=== PATIENT | female | born 1950 | race Caucasian/White ===

== ENCOUNTER 2019-09-28 11:56 | Emergency (ER) | payer MEDICARE, SELFPAY ==
[2019-09-28] VITALS (8 sets, daily range): BP systolic 118–147; BP diastolic 58–85; PULSE 88–99; RESP 16–24; TEMP 36.8–37.7; O2SAT 96–100; BMI 25.1
--- NOTE | 2019-09-28 12:55 | DI.RAD.S_ITS ---
PROCEDURE: XR CHEST 1V INDICATIONS: suspected sepsis TECHNIQUE: One view of the chest was acquired. COMPARISON: None. FINDINGS: Surgical changes and devices: Peripherally calcified right breast implant.. Lungs and pleura: Lungs are clear. No pleural effusions or pneumothorax. Mediastinum: Mediastinal contours appear normal. Heart size is normal. Bones and chest wall: No suspicious bony lesions. Overlying soft tissues appear unremarkable. IMPRESSION: No pneumonia found. Peripherally calcified right breast implant. Dictated by: Martell Merino M.D. on 09/28/2019 at 13:47 Approved by: Martell Merino M.D. on 09/28/2019 at 13:47
[2019-09-28] MEDS: SODIUM CHLORIDE 0.9% 1,000 ML 150 ML IV (13:01)
[2019-09-28 13:16] LABS: Alanine Aminotransferase 49 IU/L (<35); Albumin 3.7 g/dL (3.5-5.0); Albumin Globulin Ratio 1.1 (1.0-2.8); Alkaline Phosphatase 110 U/L (38-126); Aspartate Aminotransferase 35 IU/L (14-36); BUN Creatinine Ratio 11.6 (6-22); Bilirubin Total 0.7 mg/dL (0.2-1.3); Blood Urea Nitrogen 59 mg/dL (7-17); Calcium 7.9 mg/dL (8.4-10.2); Carbon Dioxide 17 mmol/L (22-32); Chloride 96 mmol/L (98-107); Estimated Glomerular Filt Rate 8.3 mL/min (>60); Globulin 3.4 g/dL (1.7-4.1); Glucose 130 mg/dL (80-110); HEMOLYSIS < 15 (0-50); Lactate (Lactic Acid) 2.8 mmol/L (0.7-2.1); Lipase 19 U/L (23-300); Potassium 3.9 mmol/L (3.4-5.1); Sodium 130 mmol/L (137-145); Total Protein 7.1 g/dL (6.3-8.2)
[2019-09-28 13:19] LABS: Hematocrit 34.3 % (36-46); Hemoglobin 11.5 g/dL (12.0-16.0); Mean Corpuscular HGB Conc 33.6 % (30-36); Mean Corpuscular Hemoglobin 30.6 PG (26-34); Mean Corpuscular Volume 91.1 fL (80-100); Platelet Count 139 X10^3/uL (150-400); Red Blood Cell Count 3.76 X10^6/uL (4.0-5.2); Red Cell Distribution Width 14.7 % (11.6-14.8); White Blood Cell Count 14.9 X10^3/uL (4.5-11.0)
[2019-09-28 13:22] LABS: Add Manual Diff / Slide Review YES
[2019-09-28 13:23] LABS: Bacteria Urine Many (>30); Culture Indicated Urine Specimen Cultured; RBC Urine 10-30/HPF (0-5/HPF); Squamous Epithelial Cell Urine 1-5 /HPF (0-5/HPF); WBC Urine 30-100/HPF (0-5/HPF)
[2019-09-28] MEDS: ONDANSETRON 4 MG/2 ML INJ IV (13:34)
[2019-09-28 13:44] LABS: Neutrophils Absolute Manual 14304 /uL (3000-5900); RBC Morphology Normal Morphology; Total Cells Counted 100
[2019-09-28 13:45] LABS: Procalcitonin 87.44 ng/mL (<0.5)
[2019-09-28] MEDS: CEFTRIAXONE 1 GM/50 ML FROZ.PIGGY IV (13:48)
--- NOTE | 2019-09-28 14:46 | DI.US.S_ITS ---
PROCEDURE: US RENAL COMPLETE INDICATIONS: acute kidney injury, infection, decreased urine output TECHNIQUE: Real-time scanning was performed of the kidneys and bladder, with image documentation. COMPARISON: None. FINDINGS: Kidneys: Kidneys are normal in size. Right kidney measures 11.8 cm long; left kidney measures 12.9 cm long. Right renal cortical thickness is 2.2 cm; left renal cortical thickness is 2.1 cm. Renal cortical echotexture is normal. No hydronephrosis or shadowing nephrolithiasis. No suspicious solid mass lesions. Bladder: The urinary bladder is decompressed and subsequently not adequately evaluated. No significant urine is appreciated within the bladder. Miscellaneous: No free pelvic fluid. IMPRESSION: No hydronephrosis or shadowing nephrolithiasis. Dictated by: Nikolas Shepherd M.D. on 09/28/2019 at 14:27 Approved by: Nikolas Shepherd M.D. on 09/28/2019 at 14:28
--- NOTE | 2019-09-28 14:55 | ED_ITS ---
HPI - Nausea/Vomiting/Diarrhea <ROM Parks - Last Filed: 09/28/19 21:14> General Chief complaint: Nausea/Vomiting/Diarrhea Stated complaint: weakness,not holding down liquids Time Seen by Provider: 09/28/19 12:55 Source: patient and family Mode of arrival: Family Vehicle Limitations: language barrier History of Present Illness HPI Narrative: This is a 69-year-old female, nonsmoker, who presents to ED with chief complain of fatigue, nausea and vomiting since 2 days ago. Patient reports she chills 3 days ago prior to this. Patient denies fever, chills at this time. Patient reports she is able to void but has been voiding small amounts. Patient reports bilateral and generalized abdominal discomfort but denies flank pain. Patient denies blood in her urine. She reports she has difficult time just keeping few sips of liquids down at this time. Patient has history of acute kidney injury and and infection about 2 years ago and had similar symptoms but today she feels worse. Then, she was hospitalized for 3 days and received IV hydration and medication. She and her are from [place] and currently visiting her son and [id number] [place] [facility]. She had [facility] routine follow-up with urologist in August and was told she has an UTI which she did not have any symptoms and was prescribed cefuroxime 500 mg b.i.d. for 5 day course which she had completed. She does have bladder prolapse and at times she does have infection from this. She was Toviaz but this has been stopped working according to the patient. Related Data Home Medications Medication Instructions Recorded Confirmed duloxetine 60 mg PO BID 09/28/19 09/28/19 fesoterodine [Toviaz] 4 mg PO DAILY 09/28/19 09/28/19 levothyroxine 150 mcg PO DAILY 09/28/19 09/28/19 mirabegron [Myrbetriq] 25 mg PO DAILY 09/28/19 09/28/19 rosuvastatin 5 mg PO DAILY 09/28/19 09/28/19 Allergies Allergy/AdvReac Type Severity Reaction Status Date / Time No Known Drug Allergies Allergy Verified 09/28/19 13:48 Review of Systems <ROM Parks Last Filed: 09/28/19 21:14> Review of Systems Narrative: General: See HPI HEENT: Denies sinus pain, ear pain, sore throat, difficulty swallowing, dizziness. Respiratory: Denies dyspnea, cough, wheezing, hemoptysis, sputum. Cardiovascular: Denies chest pain, palpitations, orthopnea, edema. Gastrointestinal: Denies nausea, vomiting, (+) lower bilateral abdominal pain, diarrhea, constipation, melena. : Denies dysuria, frequency, incontinence, hematuria, urinary retention. Musculoskeletal: Denies weakness, joint pain or bony pain. Skin: Denies rash, skin lesions, or other. Neurologic: Denies weakness, headache, numbness, change in speech, confusion, seizures, incoordination. Psychiatric: No concerning psychosocial issues. 12-point review of systems is negative except for those stated above. Patient History <ROM Parks - Last Filed: 09/28/19 21:14> Medical History Acute kidney injury (Acute) Bladder prolapse (Acute) Hypothyroidism (Acute) Melanoma (Acute) Surgical History H/O thyroidectomy (Acute) H/O: hysterectomy (Acute) S/P laminectomy (Acute) S/P tonsillectomy (Acute) Social History Smoking Status: Never smoker Smoking Status: Never smoker alcohol intake frequency: a few times a week Substance Use Type: does not use Exam <ROM Parks - Last Filed: 09/28/19 21:14> Narrative Exam Narrative: GEN: Alert, oriented x 3, tired and in moderate distress. Head: Normal cephalic, atraumatic. No scalp or temporal tenderness, palpable mass or rash. EYES: Pupils are equal, round, and reactive to light and accommodation. Extraocular muscles are intact bilaterally. There is no subconjunctival hemorrhage, exudate and sclera non-icteric. ENT: Bilateral auditory canals and tympanic membranes clear. Hearing grossly intact. Nose without bleeding, purulent discharge or deviation. Facial sinuses nontender to palpate. Mucous membrane very dry, no mucosal lesion. Throat without erythema, tonsillar hypertrophy or exudate. Uvula in midline, airway patent. Neck: Trachea in midline. No JVD, non-tender without lymphadenopathy. No masses or thyroid megaly. Supple, non-tender and no meningeal signs. CARDIAC: Normal regular rate and rhythm without murmurs, gallops, or rubs. No chest wall tenderness. No peripheral edema, cyanosis or pallor. Capillary refill is less than 2 seconds. RESPIRATORY: Lungs are clear to auscultate bilaterally. No cough, wheezes, rales, or rhonchi. No stridor, respiratory distress, increase work of breathing, or accessary muscle used. ABD: Abdomen soft, tender to palpate in generalize lower abdomen, non-distended. No guarding or rebound tenderness to palpate. Bowel sounds are normal in all 4 quadrants. There is no palpable masses or organomegaly. EXT: Full painless ROM of all extremities with no loss of sensation, strength, effusion or edema. SKIN: Warm, dry, normal color for patient. No erythema, lesions or rash over visible areas. BACK: Nontender without deformity or crepitance. No flank tenderness. NEUROLOGICAL: Alert and oriented to place, time and person. Sensation and motor function intact bilaterally. No facial droops, dysphasia. PSYCHIATRIC: Good judgement and reason, without hallucinations, abnormal affect or abnormal behaviors during the examination. Patient is not suicidal. Initial Vital Signs Initial Vital Signs: Vital Signs Temperature 99.9 F H 09/28/19 12:24 Pulse Rate 99 H 09/28/19 12:24 Respiratory Rate 24 09/28/19 12:24 Blood Pressure 141/63 H 09/28/19 12:24 Pulse Oximetry 09/28/19 12:24 <Belen Gonzalez, DO - Last Filed: 09/29/19 03:19> Initial Vital Signs Initial Vital Signs: Vital Signs Temperature 99.9 F H 09/28/19 12:24 Pulse Rate 99 H 09/28/19 12:24 Respiratory Rate 24 09/28/19 12:24 Blood Pressure 141/63 H 09/28/19 12:24 Pulse Oximetry 09/28/19 12:24 <Tegan Macedo DO - Last Filed: 10/01/19 08:12> Initial Vital Signs Initial Vital Signs: Vital Signs Temperature 99.9 F H 09/28/19 12:24 Pulse Rate 99 H 09/28/19 12:24 Respiratory Rate 24 09/28/19 12:24 Blood Pressure 141/63 H 09/28/19 12:24 Pulse Oximetry 99 09/28/19 12:24 Scores <ROM Parks - Last Filed: 09/28/19 21:14> GCS Primghar coma scale eye opening: Spontaneous Lauren coma scale verbal response: Orientated [place] coma scale motor response: Obey commands Primghar coma scale total score: 15 Course <ROM Parks - Last Filed: 09/28/19 21:14> Course Course Narrative: Spoke with [facility] chief lending officer Dr. Spence and consulted. Dr. Mathew, Hospitalist kindly accepted the patient's care for Sepsis UTI and [place]. Spoke with Dr. Eldridge, Hopitalist, but due to complicated the patient's condition and may need dialysis if the patient's condition not improving Decision to Admit Date: 09/28/19 Decision to Admit time: 14:15 Orders Ordered: Discontinued Medications Hydromorphone HCl (Dilaudid) 0.5 mg IV NOW ONE Stop: 09/28/19 15:51 Last Admin: 09/28/19 16:01 Dose: 0.5 mg Documented by: FELICE Hydromorphone HCl (Dilaudid) 0.5 mg IV NOW ONE Stop: 09/28/19 19:30 Last Admin: 09/28/19 19:40 Dose: 0.5 mg Documented by: KEN Sodium Chloride (Normal Saline 0.9%) 1,000 mls @ 999 mls/hr IV CONT ODALYS Last Infusion: 09/28/19 17:39 Dose: 0 mls/hr Documented by: Admin: 09/28/19 13:01 Dose: 150 mls/hr Documented by: FELICE Ceftriaxone Sodium/Dextrose (Rocephin) 1 gm in 50 mls @ 100 mls/hr IV NOW ONE Stop: 09/28/19 14:05 Last Infusion: 09/28/19 15:03 Dose: 0 mls/hr Documented by: Admin: 09/28/19 13:48 Dose: 100 mls/hr Documented by: FELICE Sodium Chloride (Normal Saline 0.9%) 1,000 mls @ 1,000 mls/hr IV BOLUS ONE Stop: 09/28/19 15:01 Last Infusion: 09/28/19 16:23 Dose: 0 mls/hr Documented by: Admin: 09/28/19 15:03 Dose: 1,000 mls/hr Documented by: FELICE Sodium Chloride (Normal Saline 0.9%) 1,000 mls @ 125 mls/hr IV CONT ODALYS Last Admin: 09/28/19 17:40 Dose: 125 mls/hr Documented by: AL Morphine Sulfate (Morphine) 2 mg IV NOW ONE Stop: 09/28/19 14:52 Last Admin: 09/28/19 15:23 Dose: 2 mg Documented by: FELICE Ondansetron HCl (Zofran) 4 mg IV NOW ONE Stop: 09/28/19 13:25 Last Admin: 09/28/19 13:34 Dose: 4 mg Documented by: FELICE Reevaluation(s) Reevaluation #1: The patient reports feeling improved at this time. Patient waiting for [place] transfer team for transfer to [facility] Time: 17:00 Vital Signs Vital signs: Vital Signs - 8 hr 09/28/19 14:00 09/28/19 15:00 09/28/19 15:55 Temperature 98.3 F Pulse Rate 92 H 92 H 93 H Respiratory Rate 18 20 19 Blood Pressure [right arm] 118/58 L 118/60 125/73 Pulse Oximetry 100 98 100 09/28/19 17:36 09/28/19 18:00 09/28/19 18:45 Temperature Pulse Rate 90 88 92 H Respiratory Rate 18 16 18 Blood Pressure [right arm] 126/85 135/63 142/73 H Pulse Oximetry 100 96 99 09/28/19 19:00 Temperature Pulse Rate 91 H Respiratory Rate 18 Blood Pressure [right arm] 147/74 H Pulse Oximetry 99 <Belen Gonzalez DO - Last Filed: 09/29/19 03:19> Orders Ordered: Discontinued Medications Hydromorphone HCl (Dilaudid) 0.5 mg IV NOW ONE Stop: 09/28/19 15:51 Last Admin: 09/28/19 16:01 Dose: 0.5 mg Documented by: FELICE Hydromorphone HCl (Dilaudid) 0.5 mg IV NOW ONE Stop: 09/28/19 19:30 Last Admin: 09/28/19 19:40 Dose: 0.5 mg Documented by: KEN Sodium Chloride (Normal Saline 0.9%) 1,000 mls @ 999 mls/hr IV CONT ODALYS Last Infusion: 09/28/19 17:39 Dose: 0 mls/hr Documented by: Admin: 09/28/19 13:01 Dose: 150 mls/hr Documented by: FELICE Ceftriaxone Sodium/Dextrose (Rocephin) 1 gm in 50 mls @ 100 mls/hr IV NOW ONE Stop: 09/28/19 14:05 Last Infusion: 09/28/19 15:03 Dose: 0 mls/hr Documented by: Admin: 09/28/19 13:48 Dose: 100 mls/hr Documented by: FELICE Sodium Chloride (Normal Saline 0.9%) 1,000 mls @ 1,000 mls/hr IV BOLUS ONE Stop: 09/28/19 15:01 Last Infusion: 09/28/19 16:23 Dose: 0 mls/hr Documented by: Admin: 09/28/19 15:03 Dose: 1,000 mls/hr Documented by: FELICE Sodium Chloride (Normal Saline 0.9%) 1,000 mls @ 125 mls/hr IV CONT ODALYS Last Admin: 09/28/19 17:40 Dose: 125 mls/hr Documented by: AL Morphine Sulfate (Morphine) 2 mg IV NOW ONE Stop: 09/28/19 14:52 Last Admin: 09/28/19 15:23 Dose: 2 mg Documented by: FELICE Ondansetron HCl (Zofran) 4 mg IV NOW ONE Stop: 09/28/19 13:25 Last Admin: 09/28/19 13:34 Dose: 4 mg Documented by: FELICE Vital Signs Vital signs: Vital Signs - 8 hr 09/28/19 14:00 09/28/19 15:00 09/28/19 15:55 Temperature 98.3 F Pulse Rate 92 H 92 H 93 H Respiratory Rate 18 20 19 Blood Pressure [right arm] 118/58 L 118/60 125/73 Pulse Oximetry 100 98 100 09/28/19 17:36 09/28/19 18:00 09/28/19 18:45 Temperature Pulse Rate 90 88 92 H Respiratory Rate 18 16 18 Blood Pressure [right arm] 126/85 135/63 142/73 H Pulse Oximetry 100 96 99 09/28/19 19:00 Temperature Pulse Rate 91 H Respiratory Rate 18 Blood Pressure [right arm] 147/74 H Pulse Oximetry 99 <Tegan Macedo DO - Last Filed: 10/01/19 08:12> Orders Ordered: Discontinued Medications Hydromorphone HCl (Dilaudid) 0.5 mg IV NOW ONE Stop: 09/28/19 15:51 Last Admin: 09/28/19 16:01 Dose: 0.5 mg Documented by: FELICE Hydromorphone HCl (Dilaudid) 0.5 mg IV NOW ONE Stop: 09/28/19 19:30 Last Admin: 09/28/19 19:40 Dose: 0.5 mg Documented by: KEN Sodium Chloride (Normal Saline 0.9%) 1,000 mls @ 999 mls/hr IV CONT [facility] Last Infusion: 09/28/19 17:39 Dose: 0 mls/hr Documented by: Admin: 09/28/19 13:01 Dose: 150 mls/hr Documented by: FELICE Ceftriaxone Sodium/Dextrose (Rocephin) 1 gm in 50 mls @ 100 mls/hr IV NOW ONE Stop: 09/28/19 14:05 Last Infusion: 09/28/19 15:03 Dose: 0 mls/hr Documented by: Admin: 09/28/19 13:48 Dose: 100 mls/hr Documented by: [place] Sodium Chloride (Normal Saline 0.9%) 1,000 mls @ 1,000 mls/hr IV BOLUS ONE Stop: 09/28/19 15:01 Last Infusion: 09/28/19 16:23 Dose: 0 mls/hr Documented by: Admin: 09/28/19 15:03 Dose: 1,000 mls/hr Documented by: [place] Sodium Chloride (Normal Saline 0.9%) 1,000 mls @ 125 mls/hr IV CONT ODALYS Last Admin: 09/28/19 17:40 Dose: 125 mls/hr Documented by: AL Morphine Sulfate (Morphine) 2 mg IV NOW ONE Stop: 09/28/19 14:52 Last Admin: 09/28/19 15:23 Dose: 2 mg Documented by: FELICE Ondansetron HCl (Zofran) 4 mg IV NOW ONE Stop: 09/28/19 13:25 Last Admin: 09/28/19 13:34 Dose: 4 mg Documented by: FELICE Vital Signs Vital signs: Vital Signs - 8 hr 09/28/19 14:00 09/28/19 15:00 09/28/19 15:55 Temperature 98.3 F Pulse Rate 92 H 92 H 93 H Respiratory Rate 18 20 19 Blood Pressure [right arm] 118/58 L 118/60 125/73 Pulse Oximetry 100 98 100 09/28/19 17:36 09/28/19 18:00 09/28/19 18:45 Temperature Pulse Rate 90 88 92 H Respiratory Rate 18 16 18 Blood Pressure [right arm] 126/85 135/63 142/73 H Pulse Oximetry 100 96 99 09/28/19 19:00 Temperature Pulse Rate 91 H Respiratory Rate 18 Blood Pressure [right arm] 147/74 H Pulse Oximetry 99 MDM - Nausea/Vomiting/Diarrhea <ROM Parks - Last Filed: 09/28/19 21:14> Differential Diagnosis Differential diagnosis: Likely dehydration and other (Acute kidney injury, UTI, sepsis) Medical Records Attestation: I reviewed the patient's medical records. Lab Data Attestation: I reviewed the patient's lab results. Result diagrams: 09/28/19 12:50 09/28/19 15:13 Labs: Lab Results 09/28/19 09/28/19 09/28/19 Range/Units 12:30 12:50 12:50 WBC 14.9 H (4.5-11.0) X10^3/uL RBC 3.76 L (4.0-5.2) X10^6/uL Hgb 11.5 L (12.0-16.0) g/dL Hct 34.3 L (36-46) % MCV 91.1 (80-100) fL MCH 30.6 (26-34) PG MCHC 33.6 (30-36) % RDW 14.7 (11.6-14.8) % Plt Count 139 L (150-400) X10^3/uL Neut % (Auto) Not Reportable Lymph % (Auto) Not Reportable [place] % (Auto) Not Reportable Eos % (Auto) Not Reportable Baso % (Auto) Not Reportable Lymph # (Auto) Not Reportable [place] # (Auto) Not Reportable Baso # (Auto) Not Reportable Total Counted 100 Seg Neutrophils % 83.0 H (38-70) % Band Neutrophils % 13.0 H (3-7) % Lymphocytes % (Manual) 3.0 L (25-45) % Monocytes % (Manual) 1.0 L (2-11) % Neutrophils # (Manual) 36785 H (5968-7151) /uL RBC Morphology Normal morphology Sodium 130 L (137-145) mmol/L Potassium 3.9 (3.4-5.1) mmol/L Chloride 96 L (98-107) mmol/L Carbon Dioxide 17 L (22-32) mmol/L BUN 59 H (7-17) mg/dL Creatinine 5.10 H (0.52-1.04) mg/dL Estimated GFR 8.3 L (>60) mL/min BUN/Creatinine Ratio 11.6 (6-22) Glucose 130 H (80-110) mg/dL Lactate (0.7-2.1) mmol/L Calcium 7.9 L (8.4-10.2) mg/dL Total Bilirubin 0.7 (0.2-1.3) mg/dL AST 35 (14-36) IU/L ALT 49 H (<35) IU/L Alkaline Phosphatase 110 (38-126) U/L Total Protein 7.1 (6.3-8.2) g/dL Albumin 3.7 (3.5-5.0) g/dL Globulin 3.4 (1.7-4.1) g/dL Albumin/Globulin Ratio 1.1 (1.0-2.8) Lipase 19 L (23-300) U/L Procalcitonin (<0.5) ng/mL Urine RBC 10-30/hpf H (0-5/HPF) Urine WBC 30-100/hpf H (0-5/HPF) Ur Squamous Epith Cells 1-5 /hpf (0-5/HPF) Urine Bacteria Many (>30) H (None) Ur Culture Indicated? Specimen cultured A. baumannii (PCR) (Not Detect) Sally albicans (PCR) (Not Detect) C. glabrata (PCR) (Not Detect) C. krusei (PCR) (Not Detect) C. parapsilosis (PCR) (Not Detect) C. tropicalis (PCR) (Not Detect) Enterobacteriac sp PCR (Not Detect) E. cloacae complex PCR (Not Detect) Enterococcus sp PCR (Not Detect) E. coli (PCR) (Not Detect) H. influenzae (PCR) (Not Detect) Influenza A (RT-PCR) (NEGATIVE) Influenza B (RT-PCR) (NEGATIVE) Klebsiella oxytoca PCR (Not Detect) Klebsiella pneumoniae (Not Detect) List. monocytogenes PCR (Not Detect) N. meningitidis (PCR) (Not Detect) Proteus species (PCR) (Not Detect) Serratia marcescens PCR (Not Detect) Staphylococcus sp PCR (Not Detect) Staph aureus (PCR) (Not Detect) mecA-Methicil Res Gene Streptococcus sp PCR (Not Detect) Group A Strep (PCR) (Not Detect) Strep agalactiae (PCR) (Not Detect) Strep pneumoniae (PCR) (Not Detect) P. aeruginosa (PCR) (Not Detect) Noel/B-Vanco Res Genes KPC-Carbap Res Gene PCR (Not Detect) 09/28/19 09/28/19 09/28/19 Range/Units 12:50 12:50 12:50 WBC (4.5-11.0) X10^3/uL RBC (4.0-5.2) X10^6/uL Hgb (12.0-16.0) g/dL Hct (36-46) % MCV (80-100) fL MCH (26-34) PG MCHC (30-36) % RDW (11.6-14.8) % Plt Count (150-400) X10^3/uL Neut % (Auto) Lymph % (Auto) [place] % (Auto) Eos % (Auto) Baso % (Auto) Lymph # (Auto) [place] # (Auto) Baso # (Auto) Total Counted Seg Neutrophils % (38-70) % Band Neutrophils % (3-7) % Lymphocytes % (Manual) (25-45) % Monocytes % (Manual) (2-11) % Neutrophils # (Manual) (3708-2441) /uL RBC Morphology Sodium (137-145) mmol/L Potassium (3.4-5.1) mmol/L Chloride (98-107) mmol/L Carbon Dioxide (22-32) mmol/L BUN (7-17) mg/dL Creatinine (0.52-1.04) mg/dL Estimated GFR (>60) mL/min BUN/Creatinine Ratio (6-22) Glucose (80-110) mg/dL Lactate 2.8 H (0.7-2.1) mmol/L Calcium (8.4-10.2) mg/dL Total Bilirubin (0.2-1.3) mg/dL AST (14-36) IU/L ALT (<35) IU/L Alkaline Phosphatase (38-126) U/L Total Protein (6.3-8.2) g/dL Albumin (3.5-5.0) g/dL Globulin (1.7-4.1) g/dL Albumin/Globulin Ratio (1.0-2.8) Lipase (23-300) U/L Procalcitonin 87.44 H (<0.5) ng/mL Urine RBC (0-5/HPF) Urine WBC (0-5/HPF) Ur Squamous Epith Cells (0-5/HPF) Urine Bacteria (None) Ur Culture Indicated? A. baumannii (PCR) Not detected (Not Detect) Sally albicans (PCR) Not detected (Not Detect) C. glabrata (PCR) Not detected (Not Detect) C. krusei (PCR) Not detected (Not Detect) C. parapsilosis (PCR) Not detected (Not Detect) C. tropicalis (PCR) Not detected (Not Detect) Enterobacteriac sp PCR Detected H (Not Detect) E. cloacae complex PCR Not detected (Not Detect) Enterococcus sp PCR Not detected (Not Detect) E. coli (PCR) Detected H (Not Detect) H. influenzae (PCR) Not detected (Not Detect) Influenza A (RT-PCR) (NEGATIVE) Influenza B (RT-PCR) (NEGATIVE) Klebsiella oxytoca PCR Not detected (Not Detect) Klebsiella pneumoniae Not detected (Not Detect) List. monocytogenes PCR Not detected (Not Detect) N. meningitidis (PCR) Not detected (Not Detect) Proteus species (PCR) Not detected (Not Detect) Serratia marcescens PCR Not detected (Not Detect) Staphylococcus sp PCR Not detected (Not Detect) Staph aureus (PCR) Not detected (Not Detect) mecA-Methicil Res Gene Not Reportable Streptococcus sp PCR Not detected (Not Detect) Group A Strep (PCR) Not detected (Not Detect) Strep agalactiae (PCR) Not detected (Not Detect) Strep pneumoniae (PCR) Not detected (Not Detect) P. aeruginosa (PCR) Not detected (Not Detect) Noel/B-Vanco Res Genes Not Reportable KPC-Carbap Res Gene PCR Not detected (Not Detect) 09/28/19 09/28/19 09/28/19 Range/Units 15:13 15:13 17:58 WBC (4.5-11.0) X10^3/uL RBC (4.0-5.2) X10^6/uL Hgb (12.0-16.0) g/dL Hct (36-46) % MCV (80-100) fL MCH (26-34) PG MCHC (30-36) % RDW (11.6-14.8) % Plt Count (150-400) X10^3/uL Neut % (Auto) Lymph % (Auto) [place] % (Auto) Eos % (Auto) Baso % (Auto) Lymph # (Auto) [place] # (Auto) Baso # (Auto) Total Counted Seg Neutrophils % (38-70) % Band Neutrophils % (3-7) % Lymphocytes % (Manual) (25-45) % Monocytes % (Manual) (2-11) % Neutrophils # (Manual) (9318-5543) /uL RBC Morphology Sodium 129 L (137-145) mmol/L Potassium 4.0 (3.4-5.1) mmol/L Chloride 97 L (98-107) mmol/L Carbon Dioxide 21 L (22-32) mmol/L BUN 62 H (7-17) mg/dL Creatinine 4.70 H (0.52-1.04) mg/dL Estimated GFR 9.2 L (>60) mL/min BUN/Creatinine Ratio 13.2 (6-22) Glucose 117 H (80-110) mg/dL Lactate 1.3 (0.7-2.1) mmol/L Calcium 7.4 L (8.4-10.2) mg/dL Total Bilirubin (0.2-1.3) mg/dL AST (14-36) IU/L ALT (<35) IU/L Alkaline Phosphatase (38-126) U/L Total Protein (6.3-8.2) g/dL Albumin (3.5-5.0) g/dL Globulin (1.7-4.1) g/dL Albumin/Globulin Ratio (1.0-2.8) Lipase (23-300) U/L Procalcitonin (<0.5) ng/mL Urine RBC (0-5/HPF) Urine WBC (0-5/HPF) Ur Squamous Epith Cells (0-5/HPF) Urine Bacteria (None) Ur Culture Indicated? A. baumannii (PCR) (Not Detect) Sally albicans (PCR) (Not Detect) C. glabrata (PCR) (Not Detect) C. krusei (PCR) (Not Detect) C. parapsilosis (PCR) (Not Detect) C. tropicalis (PCR) (Not Detect) Enterobacteriac sp PCR (Not Detect) E. cloacae complex PCR (Not Detect) Enterococcus sp PCR (Not Detect) E. coli (PCR) (Not Detect) H. influenzae (PCR) (Not Detect) Influenza A (RT-PCR) Flu a negative (NEGATIVE) Influenza B (RT-PCR) Flu b negative (NEGATIVE) Klebsiella oxytoca PCR (Not Detect) Klebsiella pneumoniae (Not Detect) List. monocytogenes PCR (Not Detect) N. meningitidis (PCR) (Not Detect) Proteus species (PCR) (Not Detect) Serratia marcescens PCR (Not Detect) Staphylococcus sp PCR (Not Detect) Staph aureus (PCR) (Not Detect) mecA-Methicil Res Gene Streptococcus sp PCR (Not Detect) Group A Strep (PCR) (Not Detect) Strep agalactiae (PCR) (Not Detect) Strep pneumoniae (PCR) (Not Detect) P. aeruginosa (PCR) (Not Detect) Noel/B-Vanco Res Genes KPC-Carbap Res Gene PCR (Not Detect) Urine Dip Bedside Urine Glucose Negative Bedside Urine Bilirubin - Negative Bedside Urine Ketone +/- 5 Urine Specific [place] 1.020 Bedside Urine Occult Blood ++ Bedside Urine pH 6.0 Bedside Urine Protein +++ 300 Bedside Urine Urobilinogen - Negative Bedside Urine Nitrite - Negative Bedside Urine Leukocytes ++ 125 Esterase Imaging Data US-Abdomen: Radiologist's Impression: [address] [address] Ultrasound Report Signed Patient: Verna Quiles#: [id number] : 1950Acct:[id number] Age/Sex: 69 / FDate of Service: 09/28/19 Loc: ED Accession Number: [id number] Procedure: US renal complete Ordering Provider: Alexys Rios PROCEDURE: US RENAL COMPLETE INDICATIONS: acute kidney injury, infection, decreased urine output TECHNIQUE: Real-time scanning was performed of the kidneys and bladder, with image documentation. COMPARISON: None. FINDINGS: Kidneys: Kidneys are normal in size. Right kidney measures 11.8 cm long; left kidney measures 12.9 cm long. Right renal cortical thickness is 2.2 cm; left renal cortical thickness is 2.1 cm. Renal cortical echotexture is normal. No hydronephrosis or shadowing nephrolithiasis. No suspicious solid mass lesions. Bladder: The urinary bladder is decompressed and subsequently not adequately evaluated. No significant urine is appreciated within the bladder. Miscellaneous: No free pelvic fluid. IMPRESSION: No hydronephrosis or shadowing nephrolithiasis. Dictated by: Nikolas Shepherd M.D. on 09/28/2019 at 14:27 Approved by: Nikolas Shepherd M.D. on 09/28/2019 at 14:28 ECG Data Attestation: I personally reviewed and interpreted this ECG as follows: Prior ECG tracings: not available for review Interpretation: Sinus tachycardia rate at 103. Pr in 140, normal QRS duration, QT/QTc 322/[address] elevation or depression MDM Narrative Medical decision making narrative: This is a 69-year-old female who presents to ED with not feeling well, fatigue, unable to tolerate fluids for 2 days. Patient recently treated with UTI which was prescribed by her urologist in [place] with cefuroxime 500 mg b.i.d. dose for 5 days secondary to history of bladder prolapse and occasional infection. Patient reports had chills prior her symptoms developed 2 days ago. Patient denies urinary frequency, urgency, hematuria and states able to urinate but just very small amount. Urine appears to be having an infection with WBC, RBC, Leuks 125 w/o nitrite. Postive +++300 of urine protien. Positive leukocytosis of 14.9 with shift left of Bands of 13. Lactate was 2.8 and procalcitonin of 87.44. Chemistry shows BUN of 59, Cr 5.1 with GFR of 8.3 and normal BUN/Cr ratio of 11.6 , Na 130 and CO2 of 17. Normal K 3.9. Urine is pending for culture and 2 blood cultures were obtained prior starting IV antibiotic medication Rocephin 1 g. Patient was hydrated with 2 L of normal saline. Renal Ultrasound was obtained indicating no hydronephrosis or nephrolithiasis. No mass lesions were noted. Her symptoms may due to severe dehydration but with her significantly decreased kidney function I am concerned for possible dialysis therapy may needed and she may have intra-renal disease. Patient was not accepted by [facility] hospitalist due to patient's complicated condition and possible dialysis. [facility] chief lending officer was consulted and she was kindly accepted by hospitalist. Repeat BMP and lactate was ordered after 2 L of IV fluid. Lactate improved to 1.3. Kidney function test-Cr 4.7, BUN 65, GFR 9.2 and Ca 7.4, Na 129, CO 21. Patient was medicated with morphine 2 mg IV then Dilaudid 0.5 mg IV for flank pain which improved with her discomfort. Patient has been afebrile in ED stable vital signs. Urine per bladder scanner: 95ml at 1925 after 2 liter of NS and gentle IV hydration at 125ml/hr and had not voided after intial small amt of void when she got to ER. <Belen Gonzalez, DO - Last Filed: 09/29/19 03:19> Lab Data Labs: Lab Results 09/28/19 09/28/19 09/28/19 Range/Units 12:30 12:50 12:50 WBC 14.9 H (4.5-11.0) X10^3/uL RBC 3.76 L (4.0-5.2) X10^6/uL Hgb 11.5 L (12.0-16.0) g/dL Hct 34.3 L (36-46) % MCV 91.1 (80-100) fL MCH 30.6 (26-34) PG MCHC 33.6 (30-36) % RDW 14.7 (11.6-14.8) % Plt Count 139 L (150-400) X10^3/uL Neut % (Auto) Not Reportable Lymph % (Auto) Not Reportable [place] % (Auto) Not Reportable Eos % (Auto) Not Reportable Baso % (Auto) Not Reportable Lymph # (Auto) Not Reportable [place] # (Auto) Not Reportable Baso # (Auto) Not Reportable Total Counted 100 Seg Neutrophils % 83.0 H (38-70) % Band Neutrophils % 13.0 H (3-7) % Lymphocytes % (Manual) 3.0 L (25-45) % Monocytes % (Manual) 1.0 L (2-11) % Neutrophils # (Manual) 79278 H (7709-2882) /uL RBC Morphology Normal morphology Sodium 130 L (137-145) mmol/L Potassium 3.9 (3.4-5.1) mmol/L Chloride 96 L (98-107) mmol/L Carbon Dioxide 17 L (22-32) mmol/L BUN 59 H (7-17) mg/dL Creatinine 5.10 H (0.52-1.04) mg/dL Estimated GFR 8.3 L (>60) mL/min BUN/Creatinine Ratio 11.6 (6-22) Glucose 130 H (80-110) mg/dL Lactate (0.7-2.1) mmol/L Calcium 7.9 L (8.4-10.2) mg/dL Total Bilirubin 0.7 (0.2-1.3) mg/dL AST 35 (14-36) IU/L ALT 49 H (<35) IU/L Alkaline Phosphatase 110 (38-126) U/L Total Protein 7.1 (6.3-8.2) g/dL Albumin 3.7 (3.5-5.0) g/dL Globulin 3.4 (1.7-4.1) g/dL Albumin/Globulin Ratio 1.1 (1.0-2.8) Lipase 19 L (23-300) U/L Procalcitonin (<0.5) ng/mL Urine RBC 10-30/hpf H (0-5/HPF) Urine WBC 30-100/hpf H (0-5/HPF) Ur Squamous Epith Cells 1-5 /hpf (0-5/HPF) Urine Bacteria Many (>30) H (None) Ur Culture Indicated? Specimen cultured A. baumannii (PCR) (Not Detect) Sally albicans (PCR) (Not Detect) C. glabrata (PCR) (Not Detect) C. krusei (PCR) (Not Detect) C. parapsilosis (PCR) (Not Detect) C. tropicalis (PCR) (Not Detect) Enterobacteriac sp PCR (Not Detect) E. cloacae complex PCR (Not Detect) Enterococcus sp PCR (Not Detect) E. coli (PCR) (Not Detect) H. influenzae (PCR) (Not Detect) Influenza A (RT-PCR) (NEGATIVE) Influenza B (RT-PCR) (NEGATIVE) Klebsiella oxytoca PCR (Not Detect) Klebsiella pneumoniae (Not Detect) List. monocytogenes PCR (Not Detect) N. meningitidis (PCR) (Not Detect) Proteus species (PCR) (Not Detect) Serratia marcescens PCR (Not Detect) Staphylococcus sp PCR (Not Detect) Staph aureus (PCR) (Not Detect) mecA-Methicil Res Gene Streptococcus sp PCR (Not Detect) Group A Strep (PCR) (Not Detect) Strep agalactiae (PCR) (Not Detect) Strep pneumoniae (PCR) (Not Detect) P. aeruginosa (PCR) (Not Detect) Noel/B-Vanco Res Genes KPC-Carbap Res Gene PCR (Not Detect) 09/28/19 09/28/19 09/28/19 Range/Units 12:50 12:50 12:50 WBC (4.5-11.0) X10^3/uL RBC (4.0-5.2) X10^6/uL Hgb (12.0-16.0) g/dL Hct (36-46) % MCV (80-100) fL MCH (26-34) PG MCHC (30-36) % RDW (11.6-14.8) % Plt Count (150-400) X10^3/uL Neut % (Auto) Lymph % (Auto) [place] % (Auto) Eos % (Auto) Baso % (Auto) Lymph # (Auto) [place] # (Auto) Baso # (Auto) Total Counted Seg Neutrophils % (38-70) % Band Neutrophils % (3-7) % Lymphocytes % (Manual) (25-45) % Monocytes % (Manual) (2-11) % Neutrophils # (Manual) (9639-6739) /uL RBC Morphology Sodium (137-145) mmol/L Potassium (3.4-5.1) mmol/L Chloride (98-107) mmol/L Carbon Dioxide (22-32) mmol/L BUN (7-17) mg/dL Creatinine (0.52-1.04) mg/dL Estimated GFR (>60) mL/min BUN/Creatinine Ratio (6-22) Glucose (80-110) mg/dL Lactate 2.8 H (0.7-2.1) mmol/L Calcium (8.4-10.2) mg/dL Total Bilirubin (0.2-1.3) mg/dL AST (14-36) IU/L ALT (<35) IU/L Alkaline Phosphatase (38-126) U/L Total Protein (6.3-8.2) g/dL Albumin (3.5-5.0) g/dL Globulin (1.7-4.1) g/dL Albumin/Globulin Ratio (1.0-2.8) Lipase (23-300) U/L Procalcitonin 87.44 H (<0.5) ng/mL Urine RBC (0-5/HPF) Urine WBC (0-5/HPF) Ur Squamous Epith Cells (0-5/HPF) Urine Bacteria (None) Ur Culture Indicated? A. baumannii (PCR) Not detected (Not Detect) Sally albicans (PCR) Not detected (Not Detect) C. glabrata (PCR) Not detected (Not Detect) C. krusei (PCR) Not detected (Not Detect) C. parapsilosis (PCR) Not detected (Not Detect) C. tropicalis (PCR) Not detected (Not Detect) Enterobacteriac sp PCR Detected H (Not Detect) E. cloacae complex PCR Not detected (Not Detect) Enterococcus sp PCR Not detected (Not Detect) E. coli (PCR) Detected H (Not Detect) H. influenzae (PCR) Not detected (Not Detect) Influenza A (RT-PCR) (NEGATIVE) Influenza B (RT-PCR) (NEGATIVE) Klebsiella oxytoca PCR Not detected (Not Detect) Klebsiella pneumoniae Not detected (Not Detect) List. monocytogenes PCR Not detected (Not Detect) N. meningitidis (PCR) Not detected (Not Detect) Proteus species (PCR) Not detected (Not Detect) Serratia marcescens PCR Not detected (Not Detect) Staphylococcus sp PCR Not detected (Not Detect) Staph aureus (PCR) Not detected (Not Detect) mecA-Methicil Res Gene Not Reportable Streptococcus sp PCR Not detected (Not Detect) Group A Strep (PCR) Not detected (Not Detect) Strep agalactiae (PCR) Not detected (Not Detect) Strep pneumoniae (PCR) Not detected (Not Detect) P. aeruginosa (PCR) Not detected (Not Detect) Noel/B-Vanco Res Genes Not Reportable KPC-Carbap Res Gene PCR Not detected (Not Detect) 09/28/19 09/28/19 09/28/19 Range/Units 15:13 15:13 17:58 WBC (4.5-11.0) X10^3/uL RBC (4.0-5.2) X10^6/uL Hgb (12.0-16.0) g/dL Hct (36-46) % MCV (80-100) fL MCH (26-34) PG MCHC (30-36) % RDW (11.6-14.8) % Plt Count (150-400) X10^3/uL Neut % (Auto) Lymph % (Auto) [place] % (Auto) Eos % (Auto) Baso % (Auto) Lymph # (Auto) [place] # (Auto) Baso # (Auto) Total Counted Seg Neutrophils % (38-70) % Band Neutrophils % (3-7) % Lymphocytes % (Manual) (25-45) % Monocytes % (Manual) (2-11) % Neutrophils # (Manual) (4386-0664) /uL RBC Morphology Sodium 129 L (137-145) mmol/L Potassium 4.0 (3.4-5.1) mmol/L Chloride 97 L (98-107) mmol/L Carbon Dioxide 21 L (22-32) mmol/L BUN 62 H (7-17) mg/dL Creatinine 4.70 H (0.52-1.04) mg/dL Estimated GFR 9.2 L (>60) mL/min BUN/Creatinine Ratio 13.2 (6-22) Glucose 117 H (80-110) mg/dL Lactate 1.3 (0.7-2.1) mmol/L Calcium 7.4 L (8.4-10.2) mg/dL Total Bilirubin (0.2-1.3) mg/dL AST (14-36) IU/L ALT (<35) IU/L Alkaline Phosphatase (38-126) U/L Total Protein (6.3-8.2) g/dL Albumin (3.5-5.0) g/dL Globulin (1.7-4.1) g/dL Albumin/Globulin Ratio (1.0-2.8) Lipase (23-300) U/L Procalcitonin (<0.5) ng/mL Urine RBC (0-5/HPF) Urine WBC (0-5/HPF) Ur Squamous Epith Cells (0-5/HPF) Urine Bacteria (None) Ur Culture Indicated? A. baumannii (PCR) (Not Detect) Sally albicans (PCR) (Not Detect) C. glabrata (PCR) (Not Detect) C. krusei (PCR) (Not Detect) C. parapsilosis (PCR) (Not Detect) C. tropicalis (PCR) (Not Detect) Enterobacteriac sp PCR (Not Detect) E. cloacae complex PCR (Not Detect) Enterococcus sp PCR (Not Detect) E. coli (PCR) (Not Detect) H. influenzae (PCR) (Not Detect) Influenza A (RT-PCR) Flu a negative (NEGATIVE) Influenza B (RT-PCR) Flu b negative (NEGATIVE) Klebsiella oxytoca PCR (Not Detect) Klebsiella pneumoniae (Not Detect) List. monocytogenes PCR (Not Detect) N. meningitidis (PCR) (Not Detect) Proteus species (PCR) (Not Detect) Serratia marcescens PCR (Not Detect) Staphylococcus sp PCR (Not Detect) Staph aureus (PCR) (Not Detect) mecA-Methicil Res Gene Streptococcus sp PCR (Not Detect) Group A Strep (PCR) (Not Detect) Strep agalactiae (PCR) (Not Detect) Strep pneumoniae (PCR) (Not Detect) P. aeruginosa (PCR) (Not Detect) Noel/B-Vanco Res Genes KPC-Carbap Res Gene PCR (Not Detect) Urine Dip Bedside Urine Glucose Negative Bedside Urine Bilirubin - Negative Bedside Urine Ketone +/- 5 Urine Specific [place] 1.020 Bedside Urine Occult Blood ++ Bedside Urine pH 6.0 Bedside Urine Protein +++ 300 Bedside Urine Urobilinogen - Negative Bedside Urine Nitrite - Negative Bedside Urine Leukocytes ++ 125 Esterase MDM Narrative Medical decision making narrative: Patient was 4/4 blood cultures opsitive with gram stain showing gram negative bacilli. PCR is positive for enterobacteriaceae/E. coli. Results were relayed by lab at 0124 and patient was transferred to [place] and results were called and faxed to [facility] in [place] at that time. <Tegan Macedo, DO - Last Filed: 10/01/19 08:12> Lab Data Labs: Lab Results 09/28/19 09/28/19 09/28/19 Range/Units 12:30 12:50 12:50 WBC 14.9 H (4.5-11.0) X10^3/uL RBC 3.76 L (4.0-5.2) X10^6/uL Hgb 11.5 L (12.0-16.0) g/dL Hct 34.3 L (36-46) % MCV 91.1 (80-100) fL MCH 30.6 (26-34) PG MCHC 33.6 (30-36) % RDW 14.7 (11.6-14.8) % Plt Count 139 L (150-400) X10^3/uL Neut % (Auto) Not Reportable Lymph % (Auto) Not Reportable [place] % (Auto) Not Reportable Eos % (Auto) Not Reportable Baso % (Auto) Not Reportable Lymph # (Auto) Not Reportable [place] # (Auto) Not Reportable Baso # (Auto) Not Reportable Total Counted 100 Seg Neutrophils % 83.0 H (38-70) % Band Neutrophils % 13.0 H (3-7) % Lymphocytes % (Manual) 3.0 L (25-45) % Monocytes % (Manual) 1.0 L (2-11) % Neutrophils # (Manual) 58976 H (8805-7486) /uL RBC Morphology Normal morphology Sodium 130 L (137-145) mmol/L Potassium 3.9 (3.4-5.1) mmol/L Chloride 96 L (98-107) mmol/L Carbon Dioxide 17 L (22-32) mmol/L BUN 59 H (7-17) mg/dL Creatinine 5.10 H (0.52-1.04) mg/dL Estimated GFR 8.3 L (>60) mL/min BUN/Creatinine Ratio 11.6 (6-22) Glucose 130 H (80-110) mg/dL Lactate (0.7-2.1) mmol/L Calcium 7.9 L (8.4-10.2) mg/dL Total Bilirubin 0.7 (0.2-1.3) mg/dL AST 35 (14-36) IU/L ALT 49 H (<35) IU/L Alkaline Phosphatase 110 (38-126) U/L Total Protein 7.1 (6.3-8.2) g/dL Albumin 3.7 (3.5-5.0) g/dL Globulin 3.4 (1.7-4.1) g/dL Albumin/Globulin Ratio 1.1 (1.0-2.8) Lipase 19 L (23-300) U/L Procalcitonin (<0.5) ng/mL Urine RBC 10-30/hpf H (0-5/HPF) Urine WBC 30-100/hpf H (0-5/HPF) Ur Squamous Epith Cells 1-5 /hpf (0-5/HPF) Urine Bacteria Many (>30) H (None) Ur Culture Indicated? Specimen cultured A. baumannii (PCR) (Not Detect) Sally albicans (PCR) (Not Detect) C. glabrata (PCR) (Not Detect) C. krusei (PCR) (Not Detect) C. parapsilosis (PCR) (Not Detect) C. tropicalis (PCR) (Not Detect) Enterobacteriac sp PCR (Not Detect) E. cloacae complex PCR (Not Detect) Enterococcus sp PCR (Not Detect) E. coli (PCR) (Not Detect) H. influenzae (PCR) (Not Detect) Influenza A (RT-PCR) (NEGATIVE) Influenza B (RT-PCR) (NEGATIVE) Klebsiella oxytoca PCR (Not Detect) Klebsiella pneumoniae (Not Detect) List. monocytogenes PCR (Not Detect) N. meningitidis (PCR) (Not Detect) Proteus species (PCR) (Not Detect) Serratia marcescens PCR (Not Detect) Staphylococcus sp PCR (Not Detect) Staph aureus (PCR) (Not Detect) mecA-Methicil Res Gene Streptococcus sp PCR (Not Detect) Group A Strep (PCR) (Not Detect) Strep agalactiae (PCR) (Not Detect) Strep pneumoniae (PCR) (Not Detect) P. aeruginosa (PCR) (Not Detect) Noel/B-Vanco Res Genes KPC-Carbap Res Gene PCR (Not Detect) 01/31/20 01/31/20 01/31/20 Range/Units 12:50 12:50 12:50 WBC (4.5-11.0) X10^3/uL RBC (4.0-5.2) X10^6/uL Hgb (12.0-16.0) g/dL Hct (36-46) % MCV (80-100) fL MCH (26-34) PG MCHC (30-36) % RDW (11.6-14.8) % Plt Count (150-400) X10^3/uL Neut % (Auto) Lymph % (Auto) [place] % (Auto) Eos % (Auto) Baso % (Auto) Lymph # (Auto) [place] # (Auto) Baso # (Auto) Total Counted Seg Neutrophils % (38-70) % Band Neutrophils % (3-7) % Lymphocytes % (Manual) (25-45) % Monocytes % (Manual) (2-11) % Neutrophils # (Manual) (0227-8977) /uL RBC Morphology Sodium (137-145) mmol/L Potassium (3.4-5.1) mmol/L Chloride (98-107) mmol/L Carbon Dioxide (22-32) mmol/L BUN (7-17) mg/dL Creatinine (0.52-1.04) mg/dL Estimated GFR (>60) mL/min BUN/Creatinine Ratio (6-22) Glucose (80-110) mg/dL Lactate 2.8 H (0.7-2.1) mmol/L Calcium (8.4-10.2) mg/dL Total Bilirubin (0.2-1.3) mg/dL AST (14-36) IU/L ALT (<35) IU/L Alkaline Phosphatase (38-126) U/L Total Protein (6.3-8.2) g/dL Albumin (3.5-5.0) g/dL Globulin (1.7-4.1) g/dL Albumin/Globulin Ratio (1.0-2.8) Lipase (23-300) U/L Procalcitonin 87.44 H (<0.5) ng/mL Urine RBC (0-5/HPF) Urine WBC (0-5/HPF) Ur Squamous Epith Cells (0-5/HPF) Urine Bacteria (None) Ur Culture Indicated? A. baumannii (PCR) Not detected (Not Detect) Sally albicans (PCR) Not detected (Not Detect) C. glabrata (PCR) Not detected (Not Detect) C. krusei (PCR) Not detected (Not Detect) C. parapsilosis (PCR) Not detected (Not Detect) C. tropicalis (PCR) Not detected (Not Detect) Enterobacteriac sp PCR Detected H (Not Detect) E. cloacae complex PCR Not detected (Not Detect) Enterococcus sp PCR Not detected (Not Detect) E. coli (PCR) Detected H (Not Detect) H. influenzae (PCR) Not detected (Not Detect) Influenza A (RT-PCR) (NEGATIVE) Influenza B (RT-PCR) (NEGATIVE) Klebsiella oxytoca PCR Not detected (Not Detect) Klebsiella pneumoniae Not detected (Not Detect) List. monocytogenes PCR Not detected (Not Detect) N. meningitidis (PCR) Not detected (Not Detect) Proteus species (PCR) Not detected (Not Detect) Serratia marcescens PCR Not detected (Not Detect) Staphylococcus sp PCR Not detected (Not Detect) Staph aureus (PCR) Not detected (Not Detect) mecA-Methicil Res Gene Not Reportable Streptococcus sp PCR Not detected (Not Detect) Group A Strep (PCR) Not detected (Not Detect) Strep agalactiae (PCR) Not detected (Not Detect) Strep pneumoniae (PCR) Not detected (Not Detect) P. aeruginosa (PCR) Not detected (Not Detect) Noel/B-Vanco Res Genes Not Reportable KPC-Carbap Res Gene PCR Not detected (Not Detect) 09/28/19 09/28/19 09/28/19 Range/Units 15:13 15:13 17:58 WBC (4.5-11.0) X10^3/uL RBC (4.0-5.2) X10^6/uL Hgb (12.0-16.0) g/dL Hct (36-46) % MCV (80-100) fL MCH (26-34) PG MCHC (30-36) % RDW (11.6-14.8) % Plt Count (150-400) X10^3/uL Neut % (Auto) Lymph % (Auto) [place] % (Auto) Eos % (Auto) Baso % (Auto) Lymph # (Auto) [place] # (Auto) Baso # (Auto) Total Counted Seg Neutrophils % (38-70) % Band Neutrophils % (3-7) % Lymphocytes % (Manual) (25-45) % Monocytes % (Manual) (2-11) % Neutrophils # (Manual) (8446-0353) /uL RBC Morphology Sodium 129 L (137-145) mmol/L Potassium 4.0 (3.4-5.1) mmol/L Chloride 97 L (98-107) mmol/L Carbon Dioxide 21 L (22-32) mmol/L BUN 62 H (7-17) mg/dL Creatinine 4.70 H (0.52-1.04) mg/dL Estimated GFR 9.2 L (>60) mL/min BUN/Creatinine Ratio 13.2 (6-22) Glucose 117 H (80-110) mg/dL Lactate 1.3 (0.7-2.1) mmol/L Calcium 7.4 L (8.4-10.2) mg/dL Total Bilirubin (0.2-1.3) mg/dL AST (14-36) IU/L ALT (<35) IU/L Alkaline Phosphatase (38-126) U/L Total Protein (6.3-8.2) g/dL Albumin (3.5-5.0) g/dL Globulin (1.7-4.1) g/dL Albumin/Globulin Ratio (1.0-2.8) Lipase (23-300) U/L Procalcitonin (<0.5) ng/mL Urine RBC (0-5/HPF) Urine WBC (0-5/HPF) Ur Squamous Epith Cells (0-5/HPF) Urine Bacteria (None) Ur Culture Indicated? A. baumannii (PCR) (Not Detect) Sally albicans (PCR) (Not Detect) C. glabrata (PCR) (Not Detect) C. krusei (PCR) (Not Detect) C. parapsilosis (PCR) (Not Detect) C. tropicalis (PCR) (Not Detect) Enterobacteriac sp PCR (Not Detect) E. cloacae complex PCR (Not Detect) Enterococcus sp PCR (Not Detect) E. coli (PCR) (Not Detect) H. influenzae (PCR) (Not Detect) Influenza A (RT-PCR) Flu a negative (NEGATIVE) Influenza B (RT-PCR) Flu b negative (NEGATIVE) Klebsiella oxytoca PCR (Not Detect) Klebsiella pneumoniae (Not Detect) List. monocytogenes PCR (Not Detect) N. meningitidis (PCR) (Not Detect) Proteus species (PCR) (Not Detect) Serratia marcescens PCR (Not Detect) Staphylococcus sp PCR (Not Detect) Staph aureus (PCR) (Not Detect) mecA-Methicil Res Gene Streptococcus sp PCR (Not Detect) Group A Strep (PCR) (Not Detect) Strep agalactiae (PCR) (Not Detect) Strep pneumoniae (PCR) (Not Detect) P. aeruginosa (PCR) (Not Detect) Noel/B-Vanco Res Genes KPC-Carbap Res Gene PCR (Not Detect) Urine Dip Bedside Urine Glucose Negative Bedside Urine Bilirubin - Negative Bedside Urine Ketone +/- 5 Urine Specific [place] 1.020 Bedside Urine Occult Blood ++ Bedside Urine pH 6.0 Bedside Urine Protein +++ 300 Bedside Urine Urobilinogen - Negative Bedside Urine Nitrite - Negative Bedside Urine Leukocytes ++ 125 Esterase Discharge Plan Departure Patient Disposition: [facility] Clinical Impression: Acute kidney injury, Acute UTI Sepsis Qualifiers: Sepsis type: sepsis due to unspecified organism Sepsis acute organ dysfunction status: unspecified Qualified Code(s): A41.9 - Sepsis, unspecified organism Discharge Date/Time: 09/28/19 19:29 Prescriptions: No Action levothyroxine 150 mcg Tablet 150 mcg PO DAILY RF: 0 rosuvastatin 5 mg Tablet 5 mg PO DAILY RF: 0 duloxetine 60 mg Capsule,Delayed Release(Dr/Ec) 60 mg PO BID RF: 0 Toviaz 4 mg Tablet Extended Release 24 Hr 4 mg PO DAILY RF: 0 Myrbetriq 25 mg Tablet Extended Release 24 Hr 25 mg PO DAILY RF: 0
[2019-09-28 15:00] LABS: Reflexed Lactate in 2 Hours Y
[2019-09-28] MEDS: SODIUM CHLORIDE 0.9% 1,000 ML 1000 ML IV (15:03)
[2019-09-28] MEDS: MORPHINE 2 MG/ML INJ IV (15:23)
[2019-09-28 15:34] LABS: Lactate 2HR (Lactic Acid Rflx) 1.3 mmol/L (0.7-2.1)
[2019-09-28 15:49] LABS: BUN Creatinine Ratio 13.2 (6-22); Blood Urea Nitrogen 62 mg/dL (7-17); Calcium 7.4 mg/dL (8.4-10.2); Carbon Dioxide 21 mmol/L (22-32); Chloride 97 mmol/L (98-107); Estimated Glomerular Filt Rate 9.2 mL/min (>60); Glucose 117 mg/dL (80-110); HEMOLYSIS < 15 (0-50); Sodium 129 mmol/L (137-145)
[2019-09-28] MEDS: HYDROMORPHONE 0.5 MG INJ IV ×2 (16:01→19:40)
[2019-09-28] MEDS: SODIUM CHLORIDE 0.9% 1,000 ML 125 ML IV (17:40)
[2019-09-28 18:31] LABS: Influenza A - CEPHEID Flu A NEGATIVE (NEGATIVE); Influenza B - CEPHEID Flu B NEGATIVE (NEGATIVE)
[2019-09-29 03:34] LABS: Acinetobacter baumannii Not Detected (Not Detect); Enterobacteriaceae species Detected (Not Detect); Enterococcus species Not Detected (Not Detect); Listeria monocytogenes Not Detected (Not Detect); Staphylococcus species Not Detected (Not Detect); Streptococcus agalactiae (Gr B Not Detected (Not Detect); Streptococcus pneumonia Not Detected (Not Detect); Streptococcus pyogenes (Gr A) Not Detected (Not Detect); Streptococcus species Not Detected (Not Detect)
[2019-09-29 03:35] LABS: E. coli Detected (Not Detect)
[2019-09-29 03:36] LABS: Candida albicans Not Detected (Not Detect); Candida glabrata Not Detected (Not Detect); Candida krusei Not Detected (Not Detect); Enterobacter cloacae complex Not Detected (Not Detect); Haemophilus influenzae Not Detected (Not Detect); KPC (carbapenem-resist gene) Not Detected (Not Detect); Neisseria meningitidis Not Detected (Not Detect); Proteus species Not Detected (Not Detect); Pseudomonas aeruginosa Not Detected (Not Detect); Serratia marcescens Not Detected (Not Detect)
[2019-09-29 03:37] LABS: Candida parapsilosis Not Detected (Not Detect); Candida tropicalis Not Detected (Not Detect)
--- NOTE | 2019-10-16 11:31 | PC.NURSE ---
Late entry: [facility] started @ [id number] completed for IH documentation upon pt transfer transport crew @ [id number].
== END 2019-09-28 19:29 | disposition short-term general hospital (02) ==
PROVIDERS: Emergency Medicine; Emergency Provider Nurse Practitioner Family
DX: N17.9 Acute kidney failure, unspecified (principal); N39.0 Urinary tract infection, site not specified; A41.9 Sepsis, unspecified organism; E86.0 Dehydration; B96.20 Unspecified Escherichia coli [E. coli] as the cause of diseases classified elsewhere
CPT/HCPCS: 36415; 51798; 71045; 76770; 80048; 80053; 81003; 81015; 83605; 83690; 84145; 85025; 87040; 87077; 87086; 87150; 87186; 87205; 87502; 93005; 96361; 96365; 96375; 96376; 99284; 99285; J1170; J2270; J2405

== ENCOUNTER → 2019-10-11 11:30 | Outpatient (CLI) | payer MEDICARE, SELFPAY ==
[2019-10-11 12:17] LABS: Add Manual Diff / Slide Review NO; Basophils Absolute Auto 100 /uL (0-100); Basophils Percent Auto 1.4 % (0-2); Eosinophils Absolute Auto 100 /uL (0-450); Eosinophils Percent Auto 1.1 % (2-4); Hemoglobin 9.4 g/dL (12.0-16.0); Lymphocytes Absolute Auto 900 /uL (1100-4500); Lymphocytes Percent Auto 8.5 % (25-40); Mean Corpuscular HGB Conc 32.5 % (30-36); Mean Corpuscular Volume 92.2 fL (80-100); Monocytes Absolute Auto 800 /uL (0-900); Neutrophils Absolute Auto 9100 /uL (1500-7000); Platelet Count 490 X10^3/uL (150-400); Red Blood Cell Count 3.14 X10^6/uL (4.0-5.2); Red Cell Distribution Width 14.7 % (11.6-14.8); White Blood Cell Count 11.1 X10^3/uL (4.5-11.0)
[2019-10-11 12:34] LABS: Erythrocyte Sedimentation Rate 119 MM/HR (0-20)
[2019-10-11 12:44] LABS: Procalcitonin 0.19 ng/mL (<0.5)
[2019-10-11 13:23] LABS: Alanine Aminotransferase 34 IU/L (<35); Albumin 3.7 g/dL (3.5-5.0); Alkaline Phosphatase 197 U/L (38-126); Aspartate Aminotransferase 31 IU/L (14-36); BUN Creatinine Ratio 10.9 (6-22); Bilirubin Total 0.4 mg/dL (0.2-1.3); Blood Urea Nitrogen 24 mg/dL (7-17); C-Reactive Protein Quant 6.2 mg/dL (<1.0); Calcium 9.4 mg/dL (8.4-10.2); Carbon Dioxide 19 mmol/L (22-32); Chloride 99 mmol/L (98-107); Globulin 3.6 g/dL (1.7-4.1); Glucose 109 mg/dL (80-110); HEMOLYSIS < 15 (0-50); Potassium 4.9 mmol/L (3.4-5.1); Sodium 134 mmol/L (137-145); Total Protein 7.3 g/dL (6.3-8.2)
[2019-10-11 18:04] LABS: Appearance Urine UA CLEAR; Bilirubin Urine UA NEGATIVE (NEGATIVE); Color Urine UA YELLOW; Glucose Urine UA NEGATIVE (Negative); Ketones Urine UA NEGATIVE (NEGATIVE); Leukocyte Esterase Urine UA NEGATIVE (NEGATIVE); Nitrite Urine UA NEGATIVE (Negative); Occult Blood Urine UA TRACE-LYSED (Negative); Protein Urine UA NEGATIVE (Negative); Urobilinogen Urine UA 0.2 E.U./dL (0.2)
[2019-10-11 18:07] LABS: pH Urine UA 6.5 (4.5-8.0)
== END ==
PROVIDERS: Referring Provider Internal Medicine; Visit Provider Internal Medicine
DX: A41.9 Sepsis, unspecified organism (principal); N17.9 Acute kidney failure, unspecified; N39.0 Urinary tract infection, site not specified
CPT/HCPCS: 36415; 80053; 81003; 84145; 85025; 85651; 86140

== ENCOUNTER → 2020-08-15 10:48 | Outpatient (CLI) | payer MEDICARE, SELFPAY | PROVIDERS: Referring Provider Student in an Organized Health Care Education/Training Program; Visit Provider Student in an Organized Health Care Education/Training Program | DX: R30.0 Dysuria (principal) | CPT/HCPCS: 87077; 87086; 87186 ==